=== PATIENT | female | born 1980 | race Caucasian/White ===

== ENCOUNTER 2020-06-25 13:24 | Emergency (ER) | payer MEDICAID ==
[~2020-06-25] VITALS: Ht 149.9 cm; Wt 61.7 kg
[2020-06-25 13:44] VITALS: BP 121/77
--- NOTE | 2020-06-25 13:48 | NUR ---
Pt taken to ER bed 8.
--- NOTE | 2020-06-25 13:52 | NUR ---
40 Y/O FEMALE C/O BILATERAL FEET SWELLING AND PAIN TO JOINTS 10 DESCRIBES ACHING [id number]. PT WAS REFERRED FROM CLINIC DUE TO ELEVATED D-DIMER TO R/O BLOOD CLOT. PT STATES SHE WAS COVID + IN THE PAST PMH: RA ALLERGIES: FLAGYL
--- NOTE | 2020-06-25 14:16 | NUR ---
Dr. Dunbar at pt bedside.
[2020-06-25 14:34] LABS: BASOPHILS # (AUTO) 0.1 K/uL (0.00-0.22); BASOPHILS % (AUTO) 0.6 % (0.0-2.0); EOSINOPHILS # (AUTO) 0.1 K/uL (0-0.4); EOSINOPHILS % (AUTO) 0.8 % (0.0-4.0); HEMATOCRIT 35.1 % (36-48); HEMOGLOBIN 11.7 g/dL (12.0-16.0); LYMPHOCYTES % (AUTO) 12.6 % (20.5-51.1); MEAN CORPUSCULAR HEMOGLOBIN 29 pg (27-31); MEAN CORPUSCULAR HGB CONC 33 g/dL (33-37); MEAN CORPUSCULAR VOLUME 87.4 fL (80-94); MONOCYTES # (AUTO) 1.3 K/uL (0.8-1.0); MONOCYTES % (AUTO) 8.4 % (1.7-9.3); NEUTROPHILS # (AUTO) 12.3 K/uL (1.8-7.7); NEUTROPHILS % (AUTO) 77.6 % (42.2-75.2); PLATELET COUNT (AUTO) 587 K/uL (140-450); RED BLOOD CELL COUNT(AUTO) 4.02 MIL/uL (4.20-5.40); RED CELL DISTRIBUTION WIDTH 14.1 % (11.6-13.7); WHITE BLOOD COUNT (AUTO) 15.8 K/uL (4.8-10.8)
[2020-06-25 14:38] LABS: APPEARANCE,URINE HAZY (CLEAR); BILIRUBIN,URINE NEGATIVE (NEGATIVE); BLOOD, URINE 3+ (NEGATIVE); COLOR,URINE YELLOW (YELLOW); LEUKOCYTE ESTERASE ,URINE 1+ (NEGATIVE); NITRITE, URINE NEGATIVE (NEGATIVE); UGLUCOSE NEGATIVE (NEGATIVE)
[2020-06-25 14:46] LABS: ALBUMIN 2.8 g/dL (3.4-5.0); ANION GAP 11.7 (8-16); CARBON DIOXIDE 28.9 mmol/L (21-32); CREATININE 0.6 mg/dL (0.6-1.3); POTASSIUM 3.6 mmol/L (3.5-5.1); TOTAL BILIRUBIN 0.2 mg/dL (0.0-1.0)
[2020-06-25 14:50] LABS: RBC,URINE >100 /HPF (0-5)
--- NOTE | 2020-06-25 15:00 | NUR ---
Obtained CT consent, placed in pt chart.
--- NOTE | 2020-06-25 15:13 | NUR ---
Pt taken to CT via W/C.
--- NOTE | 2020-06-25 15:13 | NUR ---
Mac pradhan in [facility] - 06/25/20 at 1515 by [email or web address] Pt taken to CT via shannan.
--- NOTE | 2020-06-25 15:21 | NUR ---
Pt taken to ER bed 8 via W/C.
--- NOTE | 2020-06-25 16:41 | NUR ---
Pt resting in bed, HOB elevated, VSS, will continue to monitor.
[2020-06-25] MEDS ORDERED: RIVA15TA1 PO (17:27)
[2020-06-25] MEDS ORDERED: RIVA20TA PO (17:27)
[2020-06-25 17:43] VITALS: BP 128/74
--- NOTE | 2020-06-25 17:44 | NUR ---
Patient discharged with v/s stable. Written and verbal after care instructions given and explained. Patient alert, oriented and verbalized understanding of instructions. Ambulatory with steady gait. All questions addressed prior to discharge. ID band removed. Patient advised to follow up with PMD. Rx of XARELTO given. Patient educated on indication of medication including possible reaction and side effects. Opportunity to ask questions provided and answered.
== END 2020-06-25 17:43 | disposition home or self-care (01) ==
LOC: MED 13:24
DX: I80.03 Phlebitis and thrombophlebitis of superficial vessels of lower extremities, bilateral (principal); Z88.1 Allergy status to other antibiotic agents; Z79.899 Other long term (current) drug therapy
CPT/HCPCS: 36415; 71275; 80053; 81001; 81025; 83690; 84484; 85025; 87086; 93005; 93970; 99285; Q9967